=== PATIENT | male | born 1985 | race American Indian/Alaskan Native ===

== ENCOUNTER 2020-11-15 17:35 | Emergency (ER) | payer OTHER | END 2020-11-15 20:44 | LOC: ED 17:35 | DX: Z02.89 Encounter for other administrative examinations (principal) ==

== ENCOUNTER 2020-11-15 17:35 | Emergency (ER) | payer SELFPAY ==
[~2020-11-15] VITALS: Ht 167.6 cm; Wt 63.5 kg
[2020-11-15 17:46] VITALS: BP 129/86; Ht 167.6 cm; Wt 63.5 kg
== END 2020-11-15 20:44 ==
LOC: ED 17:35
DX: S41.111A Laceration without foreign body of right upper arm, initial encounter (principal); W54.0XXA Bitten by dog, initial encounter; Y93.89 Activity, other specified; Y92.89 Other specified places as the place of occurrence of the external cause; Y99.8 Other external cause status
CPT/HCPCS: J2001; J7030; V2632